=== PATIENT | female | born 1950 | race Caucasian/White ===

== ENCOUNTER 2021-06-19 16:20 | Observation (INO) | payer MEDICARE, SELFPAY ==
[2021-06-19] VITALS (27 sets, daily range): BP systolic 109–169; BP diastolic 56–121; PULSE 84–155; RESP 10–25; TEMP 36.2–37.1; O2SAT 95–100; BMI 35.0
--- NOTE | ~2021-06-19 | XR_ITS ---
XR chest 2V 06/19/2021 17:20 Indication: Atrial fibrillation. Chest tightness. Procedure: 2 view chest Comparison: 05/07/2019 Findings: Borderline heart size. Large hiatal hernia. No focal air space disease, pulmonary edema, pl eural effusion or suspected pneumothorax. Impression: 1: No acute cardiopulmonary disease. 2: Large hiatal hernia. Reviewed, dictated and finalized at location A. Impression: 1: No acute cardiopulmonary disease. 2: Large hiatal hernia.
--- NOTE | 2021-06-19 16:33 | ECG_ITS ---
Measurements Intervals [place] Rate: 147 P: [place]: 0 QRS: -31 QRSD: 91 T: 120 QT: 298 QTc: 467 Interpretive Statements ATRIAL FIBRILLATION WITH RAPID VENTRICULAR RESPONSE LEFT AXIS DEVIATION DELAYED PRECORDIAL R/S TRANSITION LEFT VENTRICULAR HYPERTROPHY WITH ST-T CHANGE MINIMAL Q WAVES- HIGH LATERAL LEADS BASELINE ARTIFACT- I, III, AVR, AVL, V2-V5 ABNORMAL ECG Electronically Signed On 06-19-2021 16:55:19 CDT by Earle Dutton D.O.
[2021-06-19] MEDS: dilTIAZem HCl INJ 25 MG/5 ML VIAL 20 MG IV PUSH (16:49)
--- NOTE | 2021-06-19 16:51 | ED.GENADULT ---
HPI - General Adult General Chief complaint: Arrhythmia/Palpitations Stated complaint: In AFIB Time Seen by Provider: 06/19/21 16:36 History of Present Illness HPI narrative: Wonderful patient 70-year-old female presents the emergency department with chief complaint palpitations. Patient reports she has history of atrial fibrillation and Cardizem does not want today noticed that she started having patient states extra dose of Cardizem without improvement. The patient states that she sees a condominium association manager at [place] and reports that she is normally in sinus rhythm after she gets rate controlled. Patient states she has some tightness in her chest but reports this is common whenever she has an episode ventricular response. Related Data Home Medications Medication Instructions Recorded Confirmed apixaban [Eliquis] mg 06/19/21 diltiazem HCl 06/19/21 diltiazem HCl PO 06/19/21 dofetilide mcg 06/19/21 furosemide 06/19/21 insulin glargine [Lantus Solostar SUBCUT 06/19/21 U-100 Insulin] metformin mg 06/19/21 06/19/21 ramipril mg 06/19/21 rosuvastatin mg 06/19/21 Allergies Allergy/AdvReac Type Severity Reaction Status Date / Time trazodone Allergy Severe FACIAL Verified 06/19/21 16:38 SWELLING Sulfa (Sulfonamide Allergy Mild RASH Verified 06/19/21 16:38 Antibiotics) dronedarone Allergy Unknown VOMITING Verified 06/19/21 16:38 exenatide Allergy Unknown NAUSEA Verified 06/19/21 16:38 liraglutide Allergy Unknown NAUSEA Verified 06/19/21 16:38 sitagliptin Allergy Unknown FACE Verified 06/19/21 16:38 SWELLING sulfamethoxazole Allergy Unknown RASH Verified 06/19/21 16:38 trimethoprim Allergy Unknown RASH Verified 06/19/21 16:38 CHLORDIAZEPOXIDE HCL Allergy Mild Unknown Uncoded 06/19/21 16:38 ATORVASTATIN CALCIUM Allergy Unknown Muscle Pain Uncoded 06/19/21 16:38 NAPROXEN SODIUM Allergy Unknown Dizziness Uncoded 06/19/21 16:38 Review of Systems Review of Systems: A 10 system review of systems was completed on the patient and is negative except for what is stated in the HPI. Nursing and ancillary documentation was reviewed. PMFSH Comments Past medical history section for atrial fibrillation Social history patient lives with her Exam Narrative: GENERAL: Well-appearing, well-nourished, and in no acute distress. HEAD: Normocephalic, atraumatic. EYES: PERRLA and EOMI. ENT: Nares clear, no rhinorrhea or epistaxis. Mucous membranes moist. NECK: Supple. CHEST: Clear to auscultation. No respiratory distress. HEART: Irregularly irregular tachycardic rate and rhythm. No murmur heard. Normal peripheral pulses. ABDOMEN: Soft, nontender, nondistended, normal active bowel sounds. EXTREMITIES: Normal range of motion. No edema. SKIN: Warm, dry, no rash. NEURO: No focal deficits. Alert and oriented x3. PSYCH: Normal mood and affect. Course Vital Signs Vital signs: Vital Signs Temperature 36.2 C L 06/19/21 16:21 Pulse Rate 134 H 06/19/21 16:21 Respiratory Rate 18 06/19/21 16:21 Blood Pressure 145/78 H 06/19/21 16:21 Pulse Oximetry 98 06/19/21 16:21 Temperature 36.2 C L 06/19/21 16:21 Pulse Rate 111 H 06/19/21 19:06 Respiratory Rate 25 H 06/19/21 19:06 Blood Pressure 133/56 L 06/19/21 19:06 Pulse Oximetry 97 06/19/21 19:06 Medical Decision Making Vital Signs Vital Signs: Vital Signs Temperature 36.2 C L 06/19/21 16:21 Pulse Rate 134 H 06/19/21 16:21 Respiratory Rate 18 06/19/21 16:21 Blood Pressure 145/78 H 06/19/21 16:21 Pulse Oximetry 98 06/19/21 16:21 Temperature 36.2 C L 06/19/21 16:21 Pulse Rate 111 H 06/19/21 19:06 Respiratory Rate 25 H 06/19/21 19:06 Blood Pressure 133/56 L 06/19/21 19:06 Pulse Oximetry 97 06/19/21 19:06 Lab Data Result diagrams: 06/19/21 16:49 06/19/21 16:49 Labs: Lab Results 06/19/21 06/19/21 06/19/21 Range/Units 16:49 16:49 16:49 WBC 7.7 (4.5-10.0) K/mm3
[2021-06-19 17:09] LABS: Basophils Absolute Auto 0.1 K/mm3 (0.0-0.1); Basophils Percent Auto 0.6 % (0.2-1.2); Eosinophils Absolute Auto 0.3 K/mm3 (0-0.3); Eosinophils Percent Auto 4.4 % (0-4.4); Hematocrit 39.5 % (37.0-47.0); Hemoglobin 12.4 g/dL (12.0-15.0); Immature Granulocyte Absolute 0.04 K/mm3 (0.00-0.031); Immature Granulocyte Percent A 0.5 % (0-0.5); Lymphocytes Absolute Auto 0.79 K/mm3 (0.9-3.2); Lymphocytes Percent Auto 10.2 % (18.3-44.2); Mean Corpuscular HGB Conc 31.4 g/dl (32-36); Mean Corpuscular Hemoglobin 29.8 pg (26-34); Mean Platelet Volume 9.6 fl (7.4-10.4); Monocytes Absolute Auto 0.5 K/mm3 (0.1-0.6); Neutrophils Absolute Auto 6.1 K/mm3 (1.3-6.7); Neutrophils Percent Auto 78.3 % (45.5-73.1); Platelet Count Result 311 k/mm3 (150-375); Red Blood Count 4.16 M/mm3 (4.2-5.4); White Blood Count 7.7 K/mm3 (4.5-10.0)
[2021-06-19 17:18] LABS: Prothrombin Time 12.8 Seconds (11.1-14.7)
[2021-06-19 17:19] LABS: Anion Gap 9 mmol/L (8-16); Blood Urea Nitrogen 23 mg/dL (7-17); Calcium 11.6 mg/dL (8.4-10.2); Carbon Dioxide 25 mmol/L (22-30); Chloride 101 mmol/L (98-107); Estimated CRCL calculation 74 ml/min; Estimated Glomerular Filt Rate > 60; Glucose 305 mg/dL (65-110); Partial Thromboplastin Time 30.2 SECONDS (22.3-36.8); Potassium 4.1 mmol/L (3.4-5.0); Sodium 135 mmol/L (137-145)
[2021-06-19 17:21] LABS: Magnesium 1.8 mg/dL (1.6-2.3)
[2021-06-19 17:31] LABS: Troponin I 0.017 ng/mL (0.000-0.034)
[2021-06-19] MEDS: ACETAMINOPHEN 500 MG TABLET 1000 MG PO (18:34)
--- NOTE | 2021-06-19 19:20 | PC.NURSE ---
Report received from DORCAS Lopez. Preparing to admit patient.
[2021-06-19] MEDS: MAGNESIUM SULF 2 GM/WATER 50ML 2 GM/50 ML BAG IVPB (20:39)
[2021-06-19 20:40] LABS: Troponin I 0.043 ng/mL (0.000-0.034)
--- NOTE | 2021-06-19 20:41 | PC.NURSE ---
Continue to await bed assignment. Pt ambulatory to bathroom several times without distress. Remains afib rate 90-110. Pt denies chest pain or sob. CECILIO Zepeda, at bedside for evaluation.
--- NOTE | 2021-06-19 21:09 | PM.IMHP ---
H&P: HPI History of Present Illness Date/Time: 06/19/21 21:09 this is a 70-year-old female who has a past medical history of having atrial fibrillation. The patient is on extended release diltiazem at home. The patient stated that she has gone into atrial fibrillation at least half a dozen times. The patient stated that she is typically converted back to normal sinus rhythm with Cardizem. The patient's operator electronic warfare is Dr. Rueda at [facility]. the patient stated that she has an extra rapid acting Cardizem at home and she was told to give herself the rapid acting x1 today. She noticed that she was having palpitations and having a rapid heart rate. The patient stated that the extra Cardizem did not help however she also stated that she has had that Cardizem for over 2 years in [facility] not have been as potent or may have . The patient was complaining of palpitations and tightness in her chest. The patient was found to be in AFib with RVR with her heart rate being 147. The patient was started on a Cardizem drip after she was given IV push. She is also given magnesium sulfate and an aspirin. Patient's heart rate is in the 90s to lower 100s now. Troponin 0.012 and 0.043 respectively. Patient stated that her palpitations and chest pressure are better now. Her blood sugar was 305. Her calcium was 11.61 year ago was 10.8. The patient is being admitted to observation status on the date of service of 06/19/2021. Chief Complaint: Palpitations Review of Systems Review of Systems: All systems reviewed & are unremarkable except as noted in HPI and below Constitutional: Constitutional: Reports as per HPI and Reports no additional constitutional complaints Eyes: Eyes: Reports as per HPI and Reports no additional eye complaints ENT: Reports system reviewed and no additional complaints, except as documented and Reports Normal hearing present Cardiovascular: Cardiovascular: Reports no additional cardiovascular complaints Respiratory: Respiratory: Reports no additional respiratory complaints and Reports no additional respiratory complaints Gastrointestinal: Gastrointestinal: Reports as per HPI and Reports no additional gastrointestinal complaints Musculoskeletal: Musculoskeletal: Reports no additional musculoskeletal complaints Integumentary/Breasts: Skin/Breast: Reports system reviewed and no additional complaints, except as docu and Reports as per HPI Neurologic: Reports system reviewed and no additional complaints, except as documented, Reports as per HPI and Reports Normal hearing present Psychiatric: Psychiatric: Reports no additional psychiatric complaints and Reports as per HPI Endocrine: Endocrine: Reports no additional endocrine complaints Hematologic/Lymphatic: Hematologic/Lymphatic: Reports no additional hematologic/lymphatic complaints Allergic/Immunologic: Allergic/Immunologic: Reports no additional allergic/immunologic complaints [facility] Past Medical History Medical History (Updated 06/19/21 @ 21:36 by Katelyn Iqbal NP) DM2 (diabetes mellitus, type 2) HTN (hypertension), benign Hyperlipemia, mixed Paroxysmal A-fib Surgical History Surgical History (Updated 06/19/21 @ 21:27 by Katelyn Iqbal NP) H/O hand surgery Debridement left small finger and cyst removed from pointer finger H/O laparoscopy Due to ruptured ovarian cyst H/O tubal ligation History of appendectomy Family History Family History (Updated 06/19/21 @ 21:28 by Katelyn Iqbal NP) Mother Cerebrovascular accident Father Acute myocardial infarction Sibling Hypertension Diabetes mellitus Social History Social History (Updated 06/19/21 @ 21:28 by Katelyn Iqbal NP) Social History: The patient lives with her who is the power of rent control office manager for healthcare. The patient desires to be a full code. The patient is retired from education. The patient denies any tobacco, alcohol, marijuana or illicit drugs. Meds
--- NOTE | 2021-06-19 21:28 | PC.NURSE ---
Continue to await bed assignment. Pt denies needs at present.
--- NOTE | 2021-06-19 21:42 | PC.NURSE ---
Bed assignment received. SBAR tubed and faxed.
--- NOTE | 2021-06-19 22:31 | ADMGEN ---
This patient, Emmanuelle Huerta, was admitted to IMU Room 212-01 at 2210. Patient/family oriented to hospital policies and general routines including ID bracelet, bed and alarms, visiting hours, pain management, procedures, bathroom and other care routines, personal items, smoking policy, room service/diet, and visiting hours. Information on how to activate the Rapid Response Team has been discussed. Patient/Family are encouraged to report perceived risks to care and to ask questions if they do not understand what they are told or what they should do.
[2021-06-19 23:37] LABS: Troponin I 0.042 ng/mL (0.000-0.034)
[2021-06-20] VITALS (11 sets, daily range): BP systolic 124–135; BP diastolic 49–58; PULSE 50–100; RESP 12–18; TEMP 36.4–36.6; O2SAT 96–98
[2021-06-20] MEDS: ramipriL 5 MG CAPSULE 10 MG PO ×2 (00:04→08:30)
[2021-06-20] MEDS: SODIUM CHLORIDE 0.9% IV 1,000 ML 125 ML IV CONT (00:04)
[2021-06-20] MEDS: APIXABAN 5 MG TABLET PO ×2 (00:05→08:30)
[2021-06-20] MEDS: INSULIN GLARGINE (*BKC) 100 UNITS/ML 28 UNITS SUB-Q (00:05)
[2021-06-20] MEDS: ROSUVASTATIN 10 MG TABLET 20 MG PO (00:05)
--- NOTE | 2021-06-20 03:38 | ECG_ITS ---
Measurements Intervals [place] Rate: 51 P: 5 [place]: 176 QRS: -20 QRSD: 93 T: 77 QT: 440 QTc: 406 Interpretive Statements SINUS BRADYCARDIA INCOMPLETE RIGHT BUNDLE BRANCH BLOCK LEFT VENTRICULAR HYPERTROPHY AND ST-T CHANGE MINIMAL Q WAVES- HIGH LATERAL LEADS BORDERLINE ECG Electronically Signed On 06-20-2021 18:56:06 CDT by Earle Dutton D.O.
[2021-06-20 05:14] LABS: Basophils Percent Auto 0.5 % (0.2-1.2); Eosinophils Absolute Auto 0.3 K/mm3 (0-0.3); Eosinophils Percent Auto 4.8 % (0-4.4); Hematocrit 35.2 % (37.0-47.0); Hemoglobin 11.3 g/dL (12.0-15.0); Immature Granulocyte Absolute 0.02 K/mm3 (0.00-0.031); Immature Granulocyte Percent A 0.3 % (0-0.5); Lymphocytes Absolute Auto 1.06 K/mm3 (0.9-3.2); Lymphocytes Percent Auto 17.1 % (18.3-44.2); Mean Corpuscular HGB Conc 32.1 g/dl (32-36); Mean Corpuscular Hemoglobin 29.7 pg (26-34); Mean Corpuscular Volume 92.6 fl (80-100); Mean Platelet Volume 9.1 fl (7.4-10.4); Monocytes Absolute Auto 0.5 K/mm3 (0.1-0.6); Monocytes Percent Auto 8.2 % (2.6-8.5); Neutrophils Absolute Auto 4.3 K/mm3 (1.3-6.7); Neutrophils Percent Auto 69.1 % (45.5-73.1); Platelet Count Result 278 k/mm3 (150-375); Red Cell Distribution Width 11.8 % (11.5-14.5); White Blood Count 6.2 K/mm3 (4.5-10.0)
[2021-06-20 05:23] LABS: Lactic Acid Reflex 0.8 mmol/L (0.7-2.1)
[2021-06-20 05:28] LABS: Alanine Aminotransferase 13 U/L (4-35); Albumin Level 3.4 g/dL (3.5-5.1); Alkaline Phosphatase 96 U/L (38-126); Anion Gap 1 mmol/L (8-16); Aspartate Amino Transferase 18 U/L (14-36); Bilirubin,Total 0.2 mg/dL (0.2-1.3); Blood Urea Nitrogen 15 mg/dL (7-17); Calcium 10.5 mg/dL (8.4-10.2); Carbon Dioxide 28 mmol/L (22-30); Chloride 108 mmol/L (98-107); Estimated CRCL calculation 84 ml/min; Estimated Glomerular Filt Rate > 60; Glucose 178 mg/dL (65-110); Magnesium 2.1 mg/dL (1.6-2.3); Potassium 3.7 mmol/L (3.4-5.0); Sodium 137 mmol/L (137-145)
[2021-06-20 05:36] LABS: Parathyroid Intact 144.7 pg/mL (7.5-53.5)
[2021-06-20 07:02] LABS: Vitamin D 25 Hydroxy 43.3 ng/mL
[2021-06-20] MEDS: FUROSEMIDE 20 MG TABLET PO (08:30)
[2021-06-20] MEDS: ASPIRIN 81 MG CHEWABLE TABLET PO (08:35)
[2021-06-20] MEDS: ACETAMINOPHEN 325 MG TABLET 650 MG PO (08:41)
--- NOTE | 2021-06-20 08:53 | PM.IMPN ---
Progress Note: A&P Assessment and Plan (1) Atrial fibrillation with rapid ventricular response: Code(s): I48.91 - Unspecified atrial fibrillation Status: Acute (2) Chest pain: Code(s): R07.9 - Chest pain, unspecified Status: Acute (3) Hypercalcemia: Code(s): E83.52 - Hypercalcemia Status: Acute (4) DM2 (diabetes mellitus, type 2): Code(s): E11.9 - Type 2 diabetes mellitus without complications Status: Chronic (5) HTN (hypertension), benign: Code(s): I10 - Essential (primary) hypertension Status: Chronic (6) Hyperlipemia, mixed: Code(s): E78.2 - Mixed hyperlipidemia Status: Chronic Additional Plan 06/19/21 The patient stated that she has gone into AFib half a dozen times and typically will convert with the Cardizem drip. The patient is on long-acting diltiazem at home and took an extra dose of short-acting. Her interlocker maintainer is Dr. Rueda at [facility]. However she is agreeable to seeing the interlocker maintainer here. The patient has a heart rate in the upper 90s to lower 100s at this time. I do not believe that the patient's blood pressure with support a beta-anaya at this time. The patient remains in AFib at this time. The patient was having some chest pressure and palpitations with this. She has a mild elevation in her troponin. This could be related to the AFib with RVR. Will continue to monitor. The patient is already on Eliquis. Patient 2nd troponin is mildly elevated. Now that her heart rate is slowing down she is no longer having any chest pain. I did consult [facility]. I did the hypercalcemia med surge protocol. Will check her magnesium TSH PTH and vitamin-D. Continue with home medication. Accu-Cheks AC and HS. 06/20/21 hypercalcemia workup in progress, pt w long hx of hypercalcemia under care of health advisor afib RVR w baseline bradycardia cardiology consulted Subjective Date/time seen: 06/20/21 08:53 does this lady need a device Objective Data Vital Signs Vital Signs: Vital Signs - 24 hr 06/19/21 16:21 06/19/21 16:36 06/19/21 16:50 Temperature 97.2 F L Pulse Rate 134 H 155 H 153 H Respiratory Rate 18 12 Blood Pressure 145/78 H 169/121 H 139/58 L Pulse Oximetry 98 99 06/19/21 17:26 06/19/21 18:26 06/19/21 18:34 Temperature Pulse Rate 126 H 129 H 106 H Respiratory Rate 19 Blood Pressure 109/74 139/95 H Pulse Oximetry 06/19/21 18:45 06/19/21 18:53 06/19/21 18:55 Temperature Pulse Rate 112 H 110 H 105 H Respiratory Rate 12 14 11 L Blood Pressure 129/74 129/74 Pulse Oximetry 95 100 97 06/19/21 19:00 06/19/21 19:01 06/19/21 19:06 Temperature Pulse Rate 114 H 113 H 111 H Respiratory Rate 13 14 25 H Blood Pressure 133/56 L 133/56 L Pulse Oximetry 95 97 97 06/19/21 19:19 06/19/21 19:30 06/19/21 19:45 Temperature Pulse Rate 110 H 107 H 113 H Respiratory Rate 13 18 10 L Blood Pressure Pulse Oximetry 98 97 97 06/19/21 20:00 06/19/21 20:15 06/19/21 20:16 Temperature Pulse Rate 104 H 115 H 100 Respiratory Rate 16 13 12 Blood Pressure 136/81 Pulse Oximetry 97 97 97 06/19/21 20:35 06/19/21 20:52 06/19/21 21:05 Temperature Pulse Rate 126 H 104 H 94 Respiratory Rate 10 L 19 13 Blood Pressure Pulse Oximetry 97 96 97 06/19/21 21:15 06/19/21 21:16 06/19/21 21:59 Temperature Pulse Rate 113 H 102 H 98 Respiratory Rate 24 H 22 H 16 Blood Pressure 120/60 154/72 H Pulse Oximetry 97 95 97 06/19/21 22:16 06/19/21 22:52 06/19/21 23:45 Temperature 98.4 F 98.8 F Pulse Rate 106 H 84 89 Respiratory Rate 18 18 18 Blood Pressure 144/78 H 121/68 Pulse Oximetry 98 97 97 06/20/21 00:00 06/20/21 00:04 06/20/21 02:00 Temperature Pulse Rate 100 84 85 Respiratory Rate 18 Blood Pressure Pulse Oximetry 97 06/20/21 03:40 06/20/21 03:50 06/20/21 04:00 Temperature 97.8 F Pulse Rate 50 L 50 L 50 L
[2021-06-20] MEDS: SODIUM CHLORIDE 0.9% IV 1,000 ML 75 ML IV CONT (09:32)
--- NOTE | 2021-06-20 09:59 | PC.NURSE ---
This patient, Emmanuelle Huerta, was transferred to [facility] on 06/20/21 at 0830. Personal belongings sent with patient. Report given to DORCAS Mcknight. Appropriate documentation sent with patient.
[2021-06-20 10:19] LABS: Glucose Point of Care 174 mg/dl (65-105)
[2021-06-20 10:50] LABS: Creatinine Urine 22.1 mg/dL
--- NOTE | 2021-06-20 11:11 | PC.NURSE ---
Reviewing orders for patient. Report received from DORCAS Ba stated that Cardizem gtt was D/C'd at 0330 due to patient converted to SB. No D/C order noted for Cardizem gtt. Juhi Ahn NP with cardiology called and made aware, order noted to D/C Cardizem gtt. Cardiology will see patient today.
[2021-06-20 11:32] LABS: Glucose Point of Care 256 mg/dl (65-105)
[2021-06-20] MEDS: INSULIN GLARGINE (*BKC) 100 UNITS/ML 10 UNITS SUB-Q (12:22)
--- NOTE | 2021-06-20 13:07 | PM.CNCAR ---
Assessment and Plan Additional Plan 70-year-old lady with paroxysmal atrial fibrillation for number of years being managed elsewhere the combination of Tikosyn, diltiazem and apixaban. She entered the hospital with symptomatic recurrence of atrial fib she was of course treated with intravenous diltiazem which controlled her heart rate and her rhythm subsequently organized and reverted back to sinus. After that she once again is asymptomatic. She has no other cardiac pathology and has been worked up elsewhere. She does provide a history that is at least somewhat suspicious for obstructive sleep apnea but she states that the sleep study her physician wanted to do was very difficult for her to complete. In any event she is stable back in sinus rhythm I would recommend discharging her on her medical regimen of diltiazem Tikosyn and apixaban. She does have active follow-up scheduled with her physician at [facility] in a couple of weeks. This is her 1st recurrence of atrial fib on these medications for about 15 months. Marcell Shrestha MD [facility] History of Present Illness History of Present Illness Consult date/time: 06/20/21 13:07 Consult reason: atrial fibrillation Reason For Visit: Atrial Fibrillation w/rapid ventricular response Narrative: This is a 70-year-old woman that I am seeing at the request of the hospitalist because she was admitted last evening from the emergency department here with an episode of symptomatic/recurrent atrial fib with RVR. The patient has a history of atrial fibrillation she says for about 10 years. She would have paroxysms of tachycardia and palpitations that eluded diagnosis because when she did seek medical care in emergency room the arrhythmia was always resolved before she got there. Finally about 5 or 6 years ago she says she came to this [facility]'s emergency room and she was still in atrial fib the diagnosis was established. She was referred to and is following with a consular officer at [facility] for this. She states that she had an extensive workup and there were no other cardiac problems identified. She was for a while placed on Multaq for this which she was not able to tolerate because of symptoms of nausea. She for about 2-3 years has been taking Tikosyn and recently diltiazem was added to this regimen. She has a script for long-acting diltiazem 120 mg per day and short-acting diltiazem 30 mg tablets to take in a p.r.n. fashion if she has palpitations. She is also anticoagulated with apixaban. Her next appointment with her consular officer at [facility] is in the of July a couple of weeks from now she last night after being placed on IV diltiazem converted back to sinus rhythm in about 5 or 6 hours. She is asymptomatic now and is desirous of being discharged. When she is not in atrial fibrillation she has no other symptoms she pursues regular activity and exercise is in a recumbent bicycle device at home and does not have any symptoms when she is doing a vigorous workout. Review of Systems Constitutional: Constitutional: Reports no additional constitutional complaints Eyes: Eyes: Reports no additional eye complaints ENT: Reports system reviewed and no additional complaints, except as documented Cardiovascular: Cardiovascular: Reports as per HPI and Reports palpitations Respiratory: Respiratory: Reports no additional respiratory complaints Gastrointestinal: Gastrointestinal: Reports no additional gastrointestinal complaints Musculoskeletal: Musculoskeletal: Reports no additional musculoskeletal complaints Integumentary/Breasts: Skin/Breast: Reports system reviewed and no additional complaints, except as docu Neurologic: Reports system reviewed and no additional complaints, except as documented Endocrine: Endocrine: Reports no additional endocrine complaints Hematologic/Lymphatic: Hematologic/Lymphatic: Reports no additional hematologic/lymphatic complaints Allergic/Immunologic: Allergi
--- NOTE | 2021-06-20 13:37 | PM.DS ---
DS: Admitting Diagnosis Discharge Date 06/20/21 Admitting Diagnosis (1) Atrial fibrillation with rapid ventricular response: Code(s): I48.91 - Unspecified atrial fibrillation Status: Acute Assessment and Plan: (2) Chest pain: Code(s): R07.9 - Chest pain, unspecified Status: Acute Assessment and Plan: (3) Hypercalcemia: Code(s): E83.52 - Hypercalcemia Status: Acute Assessment and Plan: (4) DM2 (diabetes mellitus, type 2): Code(s): E11.9 - Type 2 diabetes mellitus without complications Status: Chronic Assessment and Plan: (5) HTN (hypertension), benign: Code(s): I10 - Essential (primary) hypertension Status: Chronic Assessment and Plan: (6) Hyperlipemia, mixed: Code(s): E78.2 - Mixed hyperlipidemia Status: Chronic Assessment and Plan: DS: Discharge Diagnosis Discharge Diagnosis (1) Hypercalcemia: Code(s): E83.52 - Hypercalcemia Status: Acute (2) Hyperlipemia, mixed: Code(s): E78.2 - Mixed hyperlipidemia Status: Chronic (3) DM2 (diabetes mellitus, type 2): Code(s): E11.9 - Type 2 diabetes mellitus without complications Status: Chronic (4) HTN (hypertension), benign: Code(s): I10 - Essential (primary) hypertension Status: Chronic (5) Paroxysmal A-fib: Code(s): I48.0 - Paroxysmal atrial fibrillation Status: Chronic (6) Atrial fibrillation with rapid ventricular response: Code(s): I48.91 - Unspecified atrial fibrillation Status: Acute DS: Summary Hospital Course Reason for hospitalization: afib RVR Hospital Course: 06/19/21 The patient stated that she has gone into AFib half a dozen times and typically will convert with the Cardizem drip. The patient is on long-acting diltiazem at home and took an extra dose of short-acting. Her production cell leader is Dr. Rueda at [facility]/ [facility]. However she is agreeable to seeing the production cell leader here. The patient has a heart rate in the upper 90s to lower 100s at this time. I do not believe that the patient's blood pressure with support a beta-anaya at this time. The patient remains in AFib at this time. The patient was having some chest pressure and palpitations with this. She has a mild elevation in her troponin. This could be related to the AFib with RVR. Will continue to monitor. The patient is already on Eliquis. Patient 2nd troponin is mildly elevated. Now that her heart rate is slowing down she is no longer having any chest pain. I did consult [facility]. I did the hypercalcemia med surge protocol. Will check her magnesium TSH PTH and vitamin-D. Continue with home medication. Accu-Cheks AC and HS. 06/20/21 hypercalcemia workup in progress, pt w long hx of hypercalcemia under care of airline operations agent afib RVR w baseline bradycardia now in NSR, cardiology consulted, will cont current medical therapy and have pt return to [facility] with her EP and production cell leader . discharge home in stable condition 10U of pts 28U qHS given early d/t hypergylcemia. pt advised to take the remaining 18U at her regularly scheduled time. and restart her normal insulin dosing tomorrow. She has a follow up w her airline operations agent soon Status at Discharge Functional status at discharge: independent ambulation Overall status at discharge: patient is back to baseline Time Spent with Patient Time attestation: Total time spent providing and/or coordinating discharge services: Time spent: Greater than 30 minutes Exam Const: General: cooperative, healthy appearing, comfortable, no acute distress, well developed, alert, awake and Physically active Nutritional Appearance: obese Orientation/consciousness: oriented to person, oriented to place, oriented to time and patient oriented x3 Limitations: no limitations HENMT: Head: normal to inspection, No palpable skull fracture present, normo
[2021-06-23 17:35] LABS: Albumin 3.1 g/dL (3.8-4.8); Alpha 1 Globulin 0.3 g/dL (0.2-0.3); Alpha 2 Globulin 0.8 g/dL (0.5-0.9); Beta 1 Globulin 0.4 g/dL (0.4-0.6); Gamma Globulin 0.7 g/dL (0.8-1.7); Interpretation Consistent with; Protein, Total 5.7 g/dL (6.1-8.1)
[2021-06-24 01:50] LABS: Ionized Calcium 6.2 mg/dL (4.8-5.6)
[2021-06-24 09:00] LABS: Vitamin D 1,25 (OH)2 Total 42 pg/mL (18-72); Vitamin D2 1,25 (OH)2 <8 pg/mL; Vitamin D3 1,25 (OH)2 42 pg/mL
[2021-06-25 13:42] LABS: Calcium/Creatinine Ratio, Ur 602 mg/g creat (10-320); Urine Creatinine, Random 22 mg/dL (20-275)
[2021-06-25 21:13] LABS: Creatinine, Random Urine 23 mg/dL (20-275); Total Protein/Creatinine Ratio 304 mg/g creat (21-161)
== END 2021-06-20 13:45 | disposition home or self-care (01) ==
LOC: ANHED 19:53 → ANHIMU 06-20 00:28 → ANHCPC 06-20 10:08 → ANHIMU 06-23 15:05
PROVIDERS: Emergency Medicine; Nurse Practitioner; Admitting Provider Internal Medicine; Emergency Provider Emergency Medicine; Visit Provider Hospitalist
DX: I48.91 Unspecified atrial fibrillation (principal); R07.9 Chest pain, unspecified; E83.52 Hypercalcemia; R00.2 Palpitations; E11.9 Type 2 diabetes mellitus without complications; I10 Essential (primary) hypertension; E78.5 Hyperlipidemia, unspecified; Z79.01 Long term (current) use of anticoagulants; Z79.4 Long term (current) use of insulin
CPT/HCPCS: 36415; 71046; 80048; 80053; 82306; 82310; 82330; 82570; 82652; 82948; 83605; 83735; 83970; 84155; 84156; 84165; 84166; 84443; 84484; 85025; 85610; 85730; 93005; 96361; 96365; 96366; 96367; 99285; A9270; G0378; J1815; J3475; J7030

== ENCOUNTER 2021-07-18 23:14 | Emergency (ER) | payer MEDICARE, SELFPAY ==
--- NOTE | ~2021-07-18 | XR_ITS ---
XR chest 1V portable DATE: 07/19/2021 00:24 INDICATION: Chest pain TECHNIQUE: Portable AP chest on 07/29/2021 at 0018 hours COMPARISON: 06/29/2021 AP and lateral chest FINDINGS: Large hiatal hernia. Heart size appears borderline but is not optimally evaluated on AP projection because of magnificatio n. There is pulmonary vascular redistribution which may indicate mild pulmonary venous hypertension. No pulmonary consolidation, pleural effusion or pneumothorax. Diffuse osteopenia. IMPRESSION: Borderline heart size, pulmonary vascular redistribution suggesting pulmonary venous hype rtension; consider mild congestive heart. Large hiatal hernia Diffuse osteopenia Reviewed, dictated and finalized at location A. IMPRESSION: Borderline heart size, pulmonary vascular redistribution suggesting pulmonary venous hypertension; consider mild congestive heart. Large hiatal hernia Diffuse osteopenia
[2021-07-18 23:24] VITALS: BP 150/106; PULSE 140; RESP 18; TEMP 36.7; O2SAT 95
--- NOTE | 2021-07-18 23:37 | ECG_ITS ---
Measurements Intervals [place] Rate: 137 P: [place]: 0 QRS: -28 QRSD: 84 T: 123 QT: 289 QTc: 438 Interpretive Statements ATRIAL FIBRILLATION WITH RAPID VENTRICULAR RESPONSE LEFT VENTRICULAR HYPERTROPHY WITH ST-T CHANGE BASELINE WANDER- I, II, III, AVF ABNORMAL ECG Electronically Signed On 07-19-2021 7:11:15 CDT by Earle Dutton D.O.
--- NOTE | 2021-07-18 23:42 | ED.GENADULT ---
HPI - General Adult General Chief complaint: Arrhythmia/Palpitations Stated complaint: Chest pain Time Seen by Provider: 07/18/21 23:33 History of Present Illness HPI narrative: Patient 71-year-old female presents the emergency department with chief complaint of palpitations. Patient reports she has history of atrial fibrillation in the past reports she takes Eliquis and takes Cardizem and Tikosyn. Patient reports that today she started feeling as though her heart was beating fast and irregular and then started having chest discomfort and tightness. The patient states this is similar to whenever she is had prior episodes of rapid ventricular response. The patient states symptoms or not improved by anything or they worsened by anything. Related Data Home Medications Medication Instructions Recorded Confirmed Eliquis 5 mg PO BID 06/19/21 06/19/21 Lantus Solostar U-100 Insulin 28 unit SUBCUT HS 06/19/21 06/19/21 diltiazem HCl 30 mg PO PRN PRN 06/19/21 06/19/21 diltiazem HCl 120 mg PO HS 06/19/21 06/19/21 dofetilide 250 mcg PO BID 06/19/21 06/19/21 furosemide 20 mg PO DAILY 06/19/21 06/19/21 metformin 1,000 mg PO BID 06/19/21 06/19/21 ramipril 10 mg PO BID 06/19/21 06/19/21 rosuvastatin 20 mg PO HS 06/19/21 06/19/21 Allergies Allergy/AdvReac Type Severity Reaction Status Date / Time trazodone Allergy Severe FACIAL Verified 07/19/21 00:09 SWELLING chlordiazepoxide Allergy Mild Unknown Verified 07/19/21 00:09 Sulfa (Sulfonamide Allergy Mild RASH Verified 07/19/21 00:09 Antibiotics) atorvastatin Allergy Unknown Muscle Pain Verified 07/19/21 00:09 dronedarone Allergy Unknown VOMITING Verified 07/19/21 00:09 exenatide Allergy Unknown NAUSEA Verified 07/19/21 00:09 liraglutide Allergy Unknown NAUSEA Verified 07/19/21 00:09 naproxen [From Naprosyn] Allergy Unknown Dizziness Verified 07/19/21 00:09 sitagliptin Allergy Unknown FACE Verified 07/19/21 00:09 SWELLING sulfamethoxazole Allergy Unknown RASH Verified 07/19/21 00:09 trimethoprim Allergy Unknown RASH Verified 09/09/21 16:38 Review of Systems Review of Systems: A 10 system review of systems was completed on the patient and is negative except for what is stated in the HPI. Nursing and ancillary documentation was reviewed. [facility] Past Medical History Medical History DM2 (diabetes mellitus, type 2) HTN (hypertension), benign Hyperlipemia, mixed Paroxysmal A-fib Surgical History Surgical History H/O hand surgery Debridement left small finger and cyst removed from pointer finger H/O laparoscopy Due to ruptured ovarian cyst H/O tubal ligation History of appendectomy Family History Family History Mother Cerebrovascular accident Father Acute myocardial infarction Sibling Hypertension Diabetes mellitus Social History Social History Social History: The patient lives with her who is the power of title attorney for healthcare. The patient desires to be a full code. The patient is retired from education. The patient denies any tobacco, alcohol, marijuana or illicit drugs. Smoking status: Never smoker Alcohol intake: never Substance use: never Substance use type: does not use Spiritual care concerns: No Exam Narrative: GENERAL: Well-appearing, well-nourished, and in no acute distress. HEAD: Normocephalic, atraumatic. EYES: PERRLA and EOMI. ENT: Nares clear, no rhinorrhea or epistaxis. Mucous membranes moist. NECK: Supple. CHEST: Clear to auscultation. No respiratory distress. HEART: Tachycardic irregularly irregular rate and rhythm. No murmur heard. Normal peripheral pulses. ABDOMEN: Soft, nontender, nondistended, normal active bowel sounds. EXTREMITIES: Normal range of motion. No ed
[2021-07-18 23:57] VITALS: BP 154/90; PULSE 127; RESP 13; O2SAT 94
[2021-07-18] MEDS: dilTIAZem HCl INJ 25 MG/5 ML VIAL 20 MG IV PUSH (23:57)
[2021-07-18 23:59] LABS: Basophils Absolute Auto 0.1 K/mm3 (0.0-0.1); Basophils Percent Auto 0.9 % (0.2-1.2); Eosinophils Absolute Auto 0.4 K/mm3 (0-0.3); Eosinophils Percent Auto 6.5 % (0-4.4); Hematocrit 38.1 % (37.0-47.0); Immature Granulocyte Absolute 0.02 K/mm3 (0.00-0.031); Immature Granulocyte Percent A 0.3 % (0-0.5); Lymphocytes Absolute Auto 1.25 K/mm3 (0.9-3.2); Lymphocytes Percent Auto 18.5 % (18.3-44.2); Mean Corpuscular HGB Conc 31.5 g/dl (32-36); Mean Corpuscular Hemoglobin 29.6 pg (26-34); Mean Corpuscular Volume 94.1 fl (80-100); Mean Platelet Volume 9.4 fl (7.4-10.4); Monocytes Absolute Auto 0.6 K/mm3 (0.1-0.6); Monocytes Percent Auto 8.1 % (2.6-8.5); Neutrophils Absolute Auto 4.4 K/mm3 (1.3-6.7); Neutrophils Percent Auto 65.7 % (45.5-73.1); Platelet Count Result 261 k/mm3 (150-375); Red Blood Count 4.05 M/mm3 (4.2-5.4); Red Cell Distribution Width 12.4 % (11.5-14.5); White Blood Count 6.8 K/mm3 (4.5-10.0)
[2021-07-19] VITALS (11 sets, daily range): BP systolic 105–162; BP diastolic 56–95; PULSE 55–113; RESP 13–20; O2SAT 93–95
[2021-07-19 00:16] LABS: Alanine Aminotransferase 17 U/L (4-35); Albumin Level 4.5 g/dL (3.5-5.1); Alkaline Phosphatase 135 U/L (38-126); Anion Gap 9 mmol/L (8-16); Aspartate Amino Transferase 23 U/L (14-36); Bilirubin,Total 0.4 mg/dL (0.2-1.3); Blood Urea Nitrogen 23 mg/dL (7-17); Calcium 11.3 mg/dL (8.4-10.2); Carbon Dioxide 26 mmol/L (22-30); Chloride 103 mmol/L (98-107); Estimated CRCL calculation 65 ml/min; Estimated Glomerular Filt Rate > 60; Glucose 219 mg/dL (65-110); Magnesium 1.8 mg/dL (1.6-2.3); Potassium 4.1 mmol/L (3.4-5.0); Prothrombin Time 13.1 Seconds (11.1-14.7); Sodium 138 mmol/L (137-145)
[2021-07-19 00:17] LABS: Partial Thromboplastin Time 29.2 SECONDS (22.3-36.8)
[2021-07-19 00:27] LABS: Troponin I < 0.012 ng/mL (0.000-0.034)
--- NOTE | 2021-07-19 00:58 | PC.NURSE ---
increased Cardizem drip to 7.5mg/hr per EDP Allan HALL.
--- NOTE | 2021-07-19 03:07 | ECG_ITS ---
Measurements Intervals [place] Rate: 60 P: 4 [place]: 171 QRS: -30 QRSD: 90 T: 69 QT: 403 QTc: 404 Interpretive Statements SINUS RHYTHM LEFT VENTRICULAR HYPERTROPHY AND ST-T CHANGE MINIMAL Q WAVES- HIGH LATERAL LEADS BASELINE ARTIFACT- II, III, V1, V3-V6 BORDERLINE ECG Electronically Signed On 07-19-2021 8:24:27 CDT by Earle Dutton D.O.
--- NOTE | 2021-07-19 07:43 | PM.IMCN ---
Assessment and Plan Assessment and plan (1) Atrial fibrillation with rapid ventricular response: Code(s): I48.91 - Unspecified atrial fibrillation Status: Acute Assessment and Plan: AFib with RVR resolved while in the ER. The patient has returned home with plan to continue her home Cardizem, Tikosyn and Eliquis. She has short-acting Cardizem as needed for episodes of AFib RVR. She is aware she needs to contact her software computer specialist and discuss the recurrence of her AFib RVR. HPI Data of Consult Consult date: 07/19/21 Primary Care Provider: PHYSICIAN NOT ON STAFF Consult Narrative Narrative: Consulting physician: ER physician Reason for consult: AFib RVR Emmanuelle Huerta is a 71 year old female with a past medical history of diabetes, hypertension, CHF, atrial fibrillation and hyperlipidemia who presented to the ER with sudden onset of symptoms of AFib RVR. The patient has a history of paroxysmal atrial fibrillation with RVR. She was last hospitalized last month for similar symptoms. She has been taking her home anti arrhythmics as directed. She is on Cardizem, Tikosyn, and Eliquis. She has been receiving adequate sleep and has not been consuming excessive caffeine. She reported that she started having palpitations and feeling a wrecker heart is beating fast and irregular. She then developed some substernal chest discomfort and tightness. She reported some pain across her shoulders and some associated nausea. These are all symptoms that usually occur when she fluids and AFib RVR. She just followed up with her software computer specialist, Dr. Rueda, yesterday at [place]. Her symptoms started around 10:00 p.m.. She took her short-acting Cardizem around 10:40 p.m.. When her symptoms persisted she decided to come to the ER. She was evaluated in the ER and received 1 dose of IV Cardizem push but remained in AFib RVR was started on a Cardizem drip. As I was going to evaluate the patient in the ER the patient's suddenly converted back into sinus rhythm and with slight bradycardia which is her baseline. The patient had complete resolution of her symptoms and decided to that she would like to return home. She has a plan for whenever she has recurrent atrial fibrillation. She is well-versed in treating her AFib. She denies any lower extremity swelling, orthopnea or paroxysmal nocturnal dyspnea. She has chronic urinary frequency due to her use of Lasix and the addition of Jardiance 2 her diabetes medications. She reports that her glucoses have been well controlled with the addition of Jardiance. She has chronic hypercalcemia and follows with Endocrinology as outpatient. She denies any paresthesias or numbness. She denies any further nausea with resolution of her AFib. She has been having normal bowel movements and denies any hematochezia or melena. [facility] Past Medical History Medical History DM2 (diabetes mellitus, type 2) HTN (hypertension), benign Hyperlipemia, mixed Paroxysmal A-fib Surgical History Surgical History H/O hand surgery Debridement left small finger and cyst removed from pointer finger H/O laparoscopy Due to ruptured ovarian cyst H/O tubal ligation History of appendectomy Family History Family History Mother Cerebrovascular accident Father Acute myocardial infarction Sibling Hypertension Diabetes mellitus Social History Social History Social History: The patient lives with her who is the power of traffic law attorney for healthcare. The patient desires to be a full code. The patient is retired from education. The patient denies any tobacco, alcohol, marijuana or illicit drugs. Smoking status: Never smoker Alcohol intake: never Substance use: never Substance use type: does not use S
--- NOTE | 2021-07-19 11:21 | PC.NURSE ---
Pt. identified cell phone correctly as in a dark blue case. Phone returned to pt.
== END 2021-07-19 03:59 | disposition home or self-care (01) ==
LOC: ANHED 07-19 02:55 → ANHIMU 07-19 03:26
PROVIDERS: Emergency Provider Emergency Medicine
DX: I48.0 Paroxysmal atrial fibrillation (principal); Z79.01 Long term (current) use of anticoagulants; E11.9 Type 2 diabetes mellitus without complications; E78.2 Mixed hyperlipidemia; I50.9 Heart failure, unspecified; I11.0 Hypertensive heart disease with heart failure; Z79.4 Long term (current) use of insulin; Z79.84 Long term (current) use of oral hypoglycemic drugs; I51.7 Cardiomegaly
CPT/HCPCS: 36415; 71045; 80053; 83735; 84484; 85025; 85610; 85730; 93005; 96365; 96366; 99284

== ENCOUNTER 2021-07-29 20:03 | Emergency (ER) | payer MEDICARE, SELFPAY ==
[2021-07-29] VITALS (40 sets, daily range): BP systolic 109–165; BP diastolic 48–105; PULSE 114–163; RESP 8–24; TEMP 35.9; O2SAT 92–99
--- NOTE | ~2021-07-29 | XR_ITS ---
EXAMINATION: XR chest 2V DATE: 07/29/2021 21:15 INDICATION: Sternal chest pain and shortness of breath TECHNIQUE: AP and lateral views of the chest are obtained. COMPARISON: 07/19/2021 FINDINGS: The lungs are free of acute opacities. There is no pleural effusion or pneumothorax. The he art size is normal. There is a large hiatal hernia. There are bridging osteophytes at multiple levels in the spine, consistent with diffuse idiopathic skeletal hyperostosis (DISH). IMPRESSION: 1. No acute cardiopulmonary abnormality. Reviewed, dictated and finalized at location A.
--- NOTE | 2021-07-29 20:05 | ECG_ITS ---
Measurements Intervals [place] Rate: 147 P: [place]: 0 QRS: -26 QRSD: 92 T: 130 QT: 290 QTc: 455 Interpretive Statements ATRIAL FIBRILLATION WITH RAPID VENTRICULAR RESPONSE LEFT VENTRICULAR HYPERTROPHY WITH ST-T CHANGE POOR R WAVE PROGRESSION, ANTERIOR LEADS ABNORMAL ECG Electronically Signed On 07-29-2021 20:14:48 CDT by Earle Dutton D.O.
[2021-07-29 20:38] LABS: Basophils Absolute Auto 0.1 K/mm3 (0.0-0.1); Eosinophils Absolute Auto 0.4 K/mm3 (0-0.3); Eosinophils Percent Auto 6.3 % (0-4.4); Hematocrit 39.7 % (37.0-47.0); Hemoglobin 12.9 g/dL (12.0-15.0); Immature Granulocyte Absolute 0.02 K/mm3 (0.00-0.031); Immature Granulocyte Percent A 0.3 % (0-0.5); Lymphocytes Absolute Auto 1.27 K/mm3 (0.9-3.2); Lymphocytes Percent Auto 21.2 % (18.3-44.2); Mean Corpuscular HGB Conc 32.5 g/dl (32-36); Mean Corpuscular Hemoglobin 30.4 pg (26-34); Mean Corpuscular Volume 93.6 fl (80-100); Mean Platelet Volume 9.4 fl (7.4-10.4); Monocytes Absolute Auto 0.4 K/mm3 (0.1-0.6); Neutrophils Absolute Auto 3.9 K/mm3 (1.3-6.7); Neutrophils Percent Auto 64.2 % (45.5-73.1); Platelet Count Result 262 k/mm3 (150-375); Red Blood Count 4.24 M/mm3 (4.2-5.4); Red Cell Distribution Width 12.8 % (11.5-14.5)
[2021-07-29 20:43] LABS: Prothrombin Time 12.8 Seconds (11.1-14.7)
[2021-07-29 20:59] LABS: Anion Gap 9 mmol/L (8-16); Blood Urea Nitrogen 22 mg/dL (7-17); Calcium 11.6 mg/dL (8.4-10.2); Carbon Dioxide 25 mmol/L (22-30); Chloride 104 mmol/L (98-107); Estimated CRCL calculation 71 ml/min; Estimated Glomerular Filt Rate > 60; Glucose 269 mg/dL (65-110); Potassium 4.2 mmol/L (3.4-5.0); Sodium 138 mmol/L (137-145)
[2021-07-29 21:11] LABS: Troponin I < 0.012 ng/mL (0.000-0.034)
[2021-07-29 21:17] LABS: Add Urine Microscopic? YES; Appearance Urine Cloudy (Clear); Bacteria Urine Trace /hpf; Bilirubin Urine Negative (Negative); Blood Urine Negative (Negative); Color Urine Straw (Yellow); Glucose Urine UA 3+ mg/dL (Negative); Ketones Urine Trace mg/dL (Negative); Leukocyte Esterase Ur 3+ LEU/UL (Negative); Nitrate Urine Negative (Negative); Protein Urine Negative (Negative); Squamous Epithelial Cell Urine Rare /hpf (Few); Urobilinogen Urine Negative mg/dL (<2.0); WBC Urine >75 /hpf
--- NOTE | 2021-07-29 21:33 | ED.GENADULT ---
HPI - General Adult General Chief complaint: Chest Pain Stated complaint: Im in AFIB Time Seen by Provider: 07/29/21 20:29 Source: patient and RN notes reviewed History of Present Illness HPI narrative: Patient is a 71 y/o female complaining of midsternal chest pain starting about 2 hours ago. She describes it as a pressure and rates it as 6/10. Her pain radiates to her neck and both shoulders. She also feels palpitation. Related Data Home Medications Medication Instructions Recorded Confirmed Eliquis 5 mg PO BID 06/19/21 06/19/21 Lantus Solostar U-100 Insulin 28 unit SUBCUT HS 06/19/21 06/19/21 diltiazem HCl 30 mg PO PRN PRN 06/19/21 06/19/21 diltiazem HCl 120 mg PO HS 06/19/21 06/19/21 dofetilide 250 mcg PO BID 06/19/21 06/19/21 furosemide 20 mg PO DAILY 06/19/21 06/19/21 metformin 1,000 mg PO BID 06/19/21 06/19/21 ramipril 10 mg PO BID 06/19/21 06/19/21 rosuvastatin 20 mg PO HS 06/19/21 06/19/21 Allergies Allergy/AdvReac Type Severity Reaction Status Date / Time trazodone Allergy Severe FACIAL Verified 07/29/21 20:39 SWELLING chlordiazepoxide Allergy Mild Unknown Verified 07/29/21 20:39 Sulfa (Sulfonamide Allergy Mild RASH Verified 07/29/21 20:39 Antibiotics) atorvastatin Allergy Unknown Muscle Pain Verified 07/29/21 20:39 dronedarone Allergy Unknown VOMITING Verified 07/29/21 20:39 exenatide Allergy Unknown NAUSEA Verified 07/29/21 20:39 liraglutide Allergy Unknown NAUSEA Verified 07/29/21 20:39 naproxen [From Naprosyn] Allergy Unknown Dizziness Verified 07/29/21 20:39 sitagliptin Allergy Unknown FACE Verified 07/29/21 20:39 SWELLING sulfamethoxazole Allergy Unknown RASH Verified 07/29/21 20:39 trimethoprim Allergy Unknown RASH Verified 06/19/21 16:38 Review of Systems Constitutional: Constitutional: Denies chills, Denies fever(s), Denies headache(s) and Denies weakness Eyes: Eyes: Denies blurry vision ENT: Denies headache(s) and Denies neck pain Cardiovascular: Cardiovascular: Reports chest pain, Reports rapid heart rate, Reports irregular heart rhythm and Denies dyspnea Respiratory: Respiratory: Denies cough and Denies dyspnea Gastrointestinal: Gastrointestinal: Denies abdominal pain, Denies diarrhea, Denies nausea and Denies vomiting Genitourinary: Genitourinary: Denies hematuria and Denies dysuria Musculoskeletal: Musculoskeletal: Denies back pain and Denies neck pain Neurologic: Denies headache(s) and Denies weakness PMFSH Past Medical History Medical History DM2 (diabetes mellitus, type 2) HTN (hypertension), benign Hyperlipemia, mixed Paroxysmal A-fib Surgical History Surgical History H/O hand surgery Debridement left small finger and cyst removed from pointer finger H/O laparoscopy Due to ruptured ovarian cyst H/O tubal ligation History of appendectomy Family History Family History Mother Cerebrovascular accident Father Acute myocardial infarction Sibling Hypertension Diabetes mellitus Social History Social History Social History: The patient lives with her who is the power of watch parts inspector for healthcare. The patient desires to be a full code. The patient is retired from education. The patient denies any tobacco, alcohol, marijuana or illicit drugs. Smoking status: Never smoker Alcohol intake: never Substance use: never Substance use type: does not use Spiritual care concerns: No Exam Const: General: no acute distress and well developed Orientation/consciousness: oriented to person, oriented to place, oriented to time and patient oriented x3 HENMT: Head: normocephalic Ears: external ears normal General nose exam: Normal external nose present Eyes: General: appearance normal, both eyes and all related structures Conjunctivae: conj
[2021-07-29] MEDS: dilTIAZem HCl INJ 25 MG/5 ML VIAL 10 MG IV PUSH (21:44)
[2021-07-30] VITALS (17 sets, daily range): BP systolic 105–139; BP diastolic 33–82; PULSE 51–136; RESP 11–26; O2SAT 93–97
[2021-07-30 00:07] LABS: Troponin I 0.012 ng/mL (0.000-0.034)
--- NOTE | 2021-07-30 00:12 | PC.NURSE ---
Diltiazem drip increased to 15 ml/hr per Dr. Yo CHACON.
--- NOTE | 2021-07-30 00:58 | ECG_ITS ---
Measurements Intervals [place] Rate: 57 P: 4 [place]: 171 QRS: -30 QRSD: 81 T: 65 QT: 396 QTc: 387 Interpretive Statements SINUS BRADYCARDIA LEFT VENTRICULAR HYPERTROPHY AND ST-T CHANGE MINIMAL Q WAVES- HIGH LATERAL LEADS BORDERLINE ECG Electronically Signed On 07-30-2021 6:37:24 CDT by aErle Dutton D.O.
[2021-07-30 02:38] LABS: Troponin I < 0.012 ng/mL (0.000-0.034)
== END 2021-07-30 02:59 | disposition home or self-care (01) ==
PROVIDERS: Emergency Medicine; Emergency Provider Emergency Medicine
DX: I48.0 Paroxysmal atrial fibrillation (principal); N39.0 Urinary tract infection, site not specified; R07.9 Chest pain, unspecified; E11.9 Type 2 diabetes mellitus without complications; I10 Essential (primary) hypertension; E78.2 Mixed hyperlipidemia; Z79.4 Long term (current) use of insulin; Z79.01 Long term (current) use of anticoagulants; R82.998 Other abnormal findings in urine; Z79.84 Long term (current) use of oral hypoglycemic drugs; Z79.82 Long term (current) use of aspirin; R94.31 Abnormal electrocardiogram [ECG] [EKG]; I51.7 Cardiomegaly; R00.1 Bradycardia, unspecified
CPT/HCPCS: 36415; 71046; 80048; 81001; 84484; 85025; 85610; 85730; 87086; 87088; 93005; 96365; 96366; 96368; 99284; J0696

== ENCOUNTER 2022-07-16 08:18 | Outpatient (CLI) | payer MEDICARE, SELFPAY ==
--- NOTE | 2022-07-16 | ECG_ITS ---
Measurements Intervals [place] Rate: 66 P: 0 [place]: 169 QRS: -40 QRSD: 83 T: 85 QT: 405 QTc: 427 Interpretive Statements SINUS RHYTHM MARKED LEFT AXIS DEVIATION [QRS AXIS < -30] LOW QRS VOLTAGE IN PRECORDIAL LEADS [QRS DEFLECTION < 1.0 mV IN CHEST LEADS] LEFT VENTRICULAR HYPERTROPHY AND ST-T CHANGE [VOLTAGE CRITERIA PLUS ST/T ABNORMALITY] COMPARED TO ECG 07/30/2021 01:03:53 SINUS RHYTHM NOW PRESENT Electronically Signed On 07-16-2022 17:23:27 CDT by Carloz Birch M.D.
[2022-07-16 08:54] LABS: Anion Gap 5 mmol/L (8-16); Blood Urea Nitrogen 20 mg/dL (7-17); Calcium 10.7 mg/dL (8.4-10.2); Carbon Dioxide 28 mmol/L (22-30); Chloride 103 mmol/L (98-107); Estimated Glomerular Filt Rate > 60; Glucose 150 mg/dL (65-110); Potassium 4.1 mmol/L (3.4-5.0); Sodium 136 mmol/L (137-145)
== END 2022-07-16 08:19 | disposition home or self-care (01) ==
DX: I48.0 Paroxysmal atrial fibrillation (principal); Z79.899 Other long term (current) drug therapy; R94.31 Abnormal electrocardiogram [ECG] [EKG]
CPT/HCPCS: 36415; 80048; 93005

== ENCOUNTER 2023-01-02 13:18 | Emergency (ER) | payer MEDICARE, SELFPAY ==
[2023-01-02 13:24] VITALS: BP 155/56; PULSE 76; RESP 16; TEMP 36.4; O2SAT 99
--- NOTE | 2023-01-02 14:24 | PC.NURSE ---
pt states it is no longer bleeding and hasn't started up again since she had been here. pt didn't want anyone to mess with it and cause it to start to bleed again so she left.
== END 2023-01-02 15:27 | disposition left against medical advice (07) ==
LOC: ANHED 15:24
DX: Z53.21 Procedure and treatment not carried out due to patient leaving prior to being seen by health care provider (principal)
CPT/HCPCS: 99199

== ENCOUNTER 2025-01-06 19:16 | Emergency (ER) | payer MEDICARE, SELFPAY ==
--- NOTE | ~2025-01-06 | XR_ITS ---
HISTORY: right lateral foot/arch pain COMPARISON: None TECHNIQUE: 3 views of the right foot were performed. Images are markedly limited secondary to technique, specifically the lateral view. FINDINGS: No acute fracture or dislocation is appreciated. Ossification of the insertion of the Achilles tendon is suspected. Significant soft tissue swelling is identified along the lateral margin of the fifth metatarsal phala ngeal joint. Cortical reaction is detected in this area. The base of the fifth metatarsal is intact. No calcaneal spur is noted. IMPRESSION: Limited evaluation of the right foot secondary to technique demonstrates significant sof t tissue swelling along the lateral margin of the fifth MTP joint with underlying cortical reaction. If osteomyelitis is suspected, MRI is recommended. Reviewed, dictated and finalized at location A. IMPRESSION: Limited evaluation of the right foot secondary to technique demons trates significant soft tissue swelling along the lateral margin of the fifth M TP joint with underlying cortical reaction. If osteomyelitis is suspected, MRI is recommended.
--- NOTE | 2025-01-06 19:17 | ED.LOWEXIN ---
HPI - Extremity Injury (Lower) General Chief Complaint: Extremity Injury, Lower Stated Complaint: Injured Right Foot Time Seen by Provider: 01/06/25 19:17 Source: patient Mode of arrival: ambulatory Limitations: no limitations History of Present Illness HPI Narrative: Emmanuelle is a 74-year-old female patient presenting to the clinic today with complaints of a right foot injury. She reports over the last few days she has had some pain over the right arch of her foot. Has tried a plantar fasciitis band which had helped over the last day or 2 but today it has not helped. States that approximately 30 minutes prior to arrival she was walking and felt a snap/crack in her right foot and developed some pain to the lateral foot. Denies any injury other than walking. Related Data Home Medications ?Medication ?Instructions ?Recorded ?Confirmed ?Last Taken ?Type apixaban 5 mg tablet (Eliquis) 5 mg PO BID 06/19/21 06/19/21 Unknown History diltiazem HCl 120 mg 120 mg PO HS 06/19/21 06/19/21 Unknown History capsule,extended release 24 hr diltiazem HCl 30 mg tablet 30 mg PO PRN PRN Atrial 06/19/21 06/19/21 Unknown History Fibrillation dofetilide 250 mcg capsule 250 mcg PO BID 06/19/21 06/19/21 Unknown History furosemide 20 mg tablet 20 mg PO DAILY 06/19/21 06/19/21 Unknown History insulin glargine 100 unit/mL (3 28 unit subcut HS 06/19/21 06/19/21 Unknown History mL) subcutaneous pen (Lantus Solostar U-100 Insulin) metformin 1,000 mg tablet 1,000 mg PO BID 06/19/21 06/19/21 Unknown History ramipril 10 mg capsule 10 mg PO BID 06/19/21 06/19/21 Unknown History rosuvastatin 20 mg tablet 20 mg PO HS 06/19/21 06/19/21 Unknown History Allergies Allergy/AdvReac Type Severity Reaction Status Date / Time trazodone Allergy Severe FACIAL Verified 01/02/23 13:20 SWELLING chlordiazepoxide Allergy Mild Unknown Verified 01/02/23 13:20 Sulfa (Sulfonamide Allergy Mild RASH Verified 01/02/23 13:20 Antibiotics) atorvastatin Allergy Unknown Muscle Pain Verified 01/02/23 13:20 dronedarone Allergy Unknown VOMITING Verified 01/02/23 13:20 exenatide Allergy Unknown NAUSEA Verified 01/02/23 13:20 liraglutide Allergy Unknown NAUSEA Verified 01/02/23 13:20 naproxen (From Naprosyn) Allergy Unknown Dizziness Verified 01/02/23 13:20 sitagliptin Allergy Unknown FACE Verified 01/02/23 13:20 SWELLING sulfamethoxazole Allergy Unknown RASH Verified 01/02/23 13:20 trimethoprim Allergy Unknown RASH Verified 01/02/23 13:20 Review of Systems Review of Systems: Pertinent positives per HPI. Patient denies any fever, chills, rash, headache, visual changes, dizziness, cough, shortness of breath, chest pain, palpitations, nausea, vomiting, diarrhea, constipation, abdominal pain, or any urinary issues. [facility] Past Medical History Medical History Hyperlipemia, mixed DM2 (diabetes mellitus, type 2) HTN (hypertension), benign Paroxysmal A-fib Surgical History Surgical History H/O hand surgery Debridement left small finger and cyst removed from pointer finger History of appendectomy H/O tubal ligation H/O laparoscopy Due to ruptured ovarian cyst Family History Family History Mother Cerebrovascular accident Father Acute myocardial infarction Sibling Hypertension Diabetes mellitus Social History Social History Social History: The patient lives with her who is the power of floor inspector for healthcare. The patient desires to be a full code. The patient is retired from education. The patient denies any tobacco, alcohol, marijuana or illicit drugs. Smoking status: Never smoker Alcohol intake: never Substance use: never Substance use type: does not use Spiritual care concerns: No Comments At the time of my signature, I reviewed and agree with the nursing past medical, surgical, social, and family history. There is no relevant family history pertinent to the patient complaint. Exam Narrative: General: Well-developed, well nourished, in no apparent distress Head: Normocephalic, atraumatic. Cardio: Regular rate and rhythm, s1 and s2 normal, no murmur appreciated. Resp: Clear to auscultation bilaterally, no rhonchi, rales, wheezing or rubs. Musculoskeletal: No deformity, no bruising or swelling, pain with bearing weight, tender to palpation over the arch of the foot near the heel as well as the lateral right foot, pain over the arch of the foot with dorsal flexion, grossly normal range of motion, muscle strength strong and equal, peripheral pulse strong, no edema, no cyanosis, sitting in a wheelchair Course Course Emergency Course: Portions of this record may have been created with voice recognition software. Level of Care: Express Care Visit Vital Signs Vital signs: Vital Signs Temperature 36.9 C 01/06/25 19:27 Pulse Rate 70 01/06/25 19:27 Respiratory Rate 16 01/06/25 19:27 Blood Pressure 168/55 H 01/06/25 19:27 Pulse Oximetry 97 01/06/25 19:27 Oxygen Delivery Room Air 01/06/25 19:27 Temperature 36.9 C 01/06/25 19:27 Pulse Rate 70 01/06/25 19:27 Respiratory Rate 16 01/06/25 19:27 Blood Pressure 168/55 H 01/06/25 19:27 Pulse Oximetry 97 01/06/25 19:27 Oxygen Delivery Room Air 01/06/25 19:27 Vital signs reviewed MDM - Extremity Injury (Lower) MDM Narrative Medical decision making narrative: At the time of visit patient is resting comfortably on the exam table. Patient appears to be nontoxic. Diagnostics: X-ray of right foot was negative for any sign of fracture or malalignment. Swelling to the lateral foot over the 5th MTP joint with cortical reaction. Plan: I suspect patient has plantar fasciitis/right foot strain. If symptoms persist recommend following up with PCP for further imaging. Supportive measures were discussed with the patient and they voiced understanding discharge instructions and agrees to treatment plan. Return precautions reviewed Differential Diagnosis Differential diagnosis: Likely other (Foot sprain, foot fracture, tendinitis, contusion, plantar fasciitis) Imaging Data Radiologist's impression: ITS Impressions Foot X-Ray 01/06/25 20:41 IMPRESSION: Limited evaluation of the right foot secondary to technique demonstrates significant soft tissue swelling along the lateral margin of the fifth MTP joint with underlying cortical reaction. If osteomyelitis is suspected, MRI is recommended. Discharge Plan Discharge Clinical Impression: Plantar fasciitis of right foot Foot sprain Qualifiers: Encounter type: initial encounter Laterality: right Qualified Code(s): S93.601A - Unspecified sprain of right foot, initial encounter Patient Disposition: Home, Self-Care Condition: Stable Instructions: Antibiotic Form, Plantar Fasciitis (ED), Foot Sprain (ED), Plantar Fasciitis Exercises (ED) Additional Instructions: X-rays negative for any acute fracture or malalignment. Rest, ice, elevate, and wear lisbet wrap as directed May take Extra-strength Tylenol as needed for pain. May apply blue emu, Aspercreme, or lidocaine cream to the affected area Gradually bear weight- may use a cane or walker. May perform plantar fascia stretches to help alleviate plantar fasciitis pain Follow up with your PCP if symptoms persist more than 1 week. Patient Language: Faroese Prescriptions: No Action dofetilide 250 mcg capsule 250 mcg PO BID metformin 1,000 mg tablet 1,000 mg PO BID diltiazem HCl 120 mg capsule,extended release 24hr 120 mg PO HS furosemide 20 mg tablet 20 mg PO DAILY diltiazem HCl 30 mg tablet 30 mg PO PRN PRN (Reason: Atrial Fibrillation) ramipril 10 mg capsule 10 mg PO BID rosuvastatin 20 mg tablet 20 mg PO HS Lantus Solostar U-100 Insulin 100 unit/mL (3 mL) insulin pen 28 unit SUBCUT HS Eliquis 5 mg tablet 5 mg PO BID aspirin [Children's Aspirin] 81 mg Tablet,Chewable 81 mg PO DAILY@0800 Qty: 30 0RF nitrofurantoin monohyd/m-cryst [Macrobid] 100 mg capsule 100 mg PO Q12H 5 Days Qty: 10 0RF Rx Instructions: must administer with a meal/food Follow-up/Referrals: UNKNOWN,DOCTOR [Non-Staff] - Time of Disposition: 20:58 Quality NIHSS Nursing Documentation ED NIHSS nursing documentation: reviewed/agree
[2025-01-06 19:27] VITALS: BP 168/55; PULSE 70; RESP 16; TEMP 36.9; O2SAT 97
== END 2025-01-06 21:00 | disposition home or self-care (01) ==
PROVIDERS: Emergency Provider Nurse Practitioner Family
DX: M72.9 Fibroblastic disorder, unspecified (principal); S93.601A Unspecified sprain of right foot, initial encounter; X58.XXXA Exposure to other specified factors, initial encounter; Y93.01 Activity, walking, marching and hiking; I48.0 Paroxysmal atrial fibrillation; I10 Essential (primary) hypertension; E11.9 Type 2 diabetes mellitus without complications; Z79.4 Long term (current) use of insulin; Z79.84 Long term (current) use of oral hypoglycemic drugs; E78.2 Mixed hyperlipidemia; Z79.01 Long term (current) use of anticoagulants
CPT/HCPCS: 73630; 99213; G0463